=== PATIENT | male | born 1955 | race Two or more races ===

== ENCOUNTER 2016-04-28 04:28 | Emergency (ER) | payer MEDICAID, OTHER ==
[~2016-04-28] VITALS: Ht 172.7 cm; Wt 90.7 kg
[2016-04-28 07:06] VITALS: BP 156/83
[2016-04-28 08:12] LABS: Potassium 4.3 mmol/L (3.5-5.1)
[2016-04-28 08:18] LABS: Basophils # (auto) 0 uL; Basophils % (auto) 0.6 % (0.0-2.0); Eosinophils # (auto) 0.1 uL; Eosinophils % (auto) 2.1 % (0.0-7.0); Hematocrit 39.4 % (41.0-53.0); Hemoglobin 13.4 g/dL (13.5-17.5); Mean Corpuscular Hemoglobin 30.6 pg (28.0-32.0); Mean Corpuscular Hgb Conc. 33.9 g/dL (32.0-36.0); Mean Corpuscular Volume 90.3 fL (80.0-100.0); Mean Platelet Volume 7.8 fL (7.4-10.4); Monocytes # (auto) 0.4 uL; Neutrophils # (auto) 3.6 uL; Neutrophils % (auto) 69.3 % (37.0-80.0); Platelet Count (auto) 253 10^3/uL (140-450); Red Cell Distribution Width 13.5 % (11.6-16.0); White Blood Cell 5.2 10^3/uL (4.4-10.8)
[2016-04-28 08:20] LABS: INR 1.02 (0.9-1.15); Partial Thromboplastin Time 29.3 sec (22.64-33.71); Prothrombin Time 10.5 sec (9.37-12.3)
[2016-04-28 08:29] LABS: Albumin 3.3 g/dL (3.4-5.0); Bilirubin, Total 0.5 mg/dL (0.2-1.0); Calcium 8.2 mg/dL (8.5-10.1); Total Protein 7.3 g/dL (6.4-8.2)
== END 2016-04-28 09:42 | disposition home or self-care (01) ==
LOC: EDBD 04:28 → ER 04:33
DX: J01.90 Acute sinusitis, unspecified (principal); R51 Headache
CPT/HCPCS: 36415; 70450; 80053; 84484; 85025; 85610; 85730; 93005; 99285; J7030